=== PATIENT | female | born 1940 | race Caucasian/White ===

== ENCOUNTER 2016-08-24 01:55 | Observation (INO) | payer MEDICARE, OTHER ==
[2016-08-24] MEDS ORDERED: ALBUTEROL SULFATE 2.5 MG/0.5 ML VIAL.NEB IH ONE ×2 (02:14→02:41)
[2016-08-24 02:41] LABS: Hemoglobin 10.5 gm/dL (12.5-16.0); Mean Cell Volume 90.6 fl (78-100); Mean Corpuscular Hemoglobin 30.7 pg (27-31); Mean Corpuscular Hgb Conc 33.9 g/dl (32-36); Mean Platelet Volume 11.5 fl (6.0-9.5); Neutrophil # 14.3 K/mm3 (1.3-6.0); Neutrophil % 84.1 % (42-75.0); Platelet Count 319 K/mm3 (150-450); Red Blood Count 3.42 M/mm3 (4.2-5.4); Red Cell Distribution Width 12.5 % (11.5-14.0)
[2016-08-24 02:44] LABS: Total Cells Counted 100
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
[2016-08-24 03:02] LABS: Troponin I Less than 0.017 ng/ml (0.00-0.10)
[2016-08-24 03:04] LABS: ALT 27 U/L (19-67); AST 23 U/L (0-48); Albumin * 2.9 gm/dl (3.4-5.0); Alkaline Phosphatase * 122 U/L (50-170); Anion Gap 13.4 mmol/L (6.8-13.8); BNP * 3237 pg/mL (5-550); Bilirubin, Total 0.4 mg/dL (0.0-1.1); Blood Urea Nitrogen 11 mg/dL (3-23); Ca. Corrected For Albumin 8.8 mg/dL (8.4-10.2); Calcium * 8.2 mg/dL (7.9-10.9); Carbon Dioxide 23.5 mmol/L (24-32.6); Chloride 89 mmol/L (97-106); Glucose * 138 mg/dL (70-110); Potassium 3.9 mmol/L (3.4-4.6); Sodium 122 mmol/L (132-142)
[2016-08-24 03:06] LABS: Eosinophil 1 % (0-3); Lymphocyte 5 % (20-51); Monocyte 16 % (0-9); Neutrophil 78 % (42-75); Neutrophil # 13.2 K/mm3 (1.3-6.0)
[2016-08-24 03:07] LABS: Hypersegmented Polys 2+; Platelet Estimate Increased (NORMAL); Rouleaux 2+; Toxic Granulation 2+; White Blood Count 16.9 K/mm3 (4.0-10.5)
[2016-08-24] MEDS ORDERED: FUROSEMIDE 10 MG/ML VIAL ONE (04:03)
[2016-08-24] MEDS: FUROSEMIDE 10 MG/ML VIAL IV SCH ×2 (04:10→09:20)
[2016-08-24 04:41] LABS: T4 Free * 1.06 ng/dL (0.76-1.46); TSH * 3.992 uIU/mL (0.358-3.74)
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
[2016-08-24] MEDS ORDERED: AZITHROMYCIN 500 MG in DEXTROSE 5 % IN WATER 250 ML IV SCH ×2 (06:15)
[2016-08-24] MEDS ORDERED: ACETAMINOPHEN PO SCH (06:30)
[2016-08-24] MEDS ORDERED: HYDROCODONE PO SCH (06:30)
[2016-08-24] MEDS ORDERED: LEVOTHYROXINE SODIUM 150 MCG TABLET PO SCH (07:00)
[2016-08-24] MEDS ORDERED: FUROSEMIDE 10 MG/ML VIAL IV ONE (07:09)
[2016-08-24] MEDS ORDERED: METOPROLOL SUCCINATE 100 MG TABLET.SA PO SCH (09:00)
[2016-08-24] MEDS ORDERED: CALCITONIN,SALMON,SYNTHETIC 30 SPRAY BTL NS SCH (09:00)
[2016-08-24] MEDS ORDERED: CALCIUM CARBONATE/VITAMIN D3 1 TAB TABLET PO SCH (09:00)
[2016-08-24] MEDS: HYDROcodone/ACETAMINOPHEN 1 EACH TABLET PO SCH ×3 (11:22→19:47)
[2016-08-24] MEDS ORDERED: ACETAMINOPHEN 325 MG TABLET PO PRN (15:10)
[2016-08-24 17:14] VITALS: BP 137/72
[2016-08-24] MEDS ORDERED: FUROSEMIDE 10 MG/ML VIAL IV STA (17:24)
[2016-08-24] MEDS ORDERED: SPIRONOLACTONE 25 MG TABLET PO STA (17:24)
[2016-08-24] MEDS ORDERED: CHOLECALCIFEROL 1,000 UNIT CAPSULE PO SCH (21:00)
[2016-08-24] MEDS ORDERED: AMITRIPTYLINE HCL 10 MG TABLET PO SCH (21:00)
--- NOTE | 2016-08-28 12:26 | ECHO ---
This report is available in the EMR
== END 2016-08-24 20:22 | disposition short-term general hospital (02) ==
LOC: ER 01:55 → MS 04:21
PROVIDERS: ADMIT Nurse Practitioner Gerontology; ATTEND Internal Medicine
DX: I31.9 Disease of pericardium, unspecified (principal); I51.7 Cardiomegaly; J90 Pleural effusion, not elsewhere classified; I48.91 Unspecified atrial fibrillation; E87.1 Hypo-osmolality and hyponatremia
CPT/HCPCS: 36415; 36600; 71010; 71020; 71035; 80053; 82803; 83605; 83880; 84145; 84439; 84443; 84484; 85025; 87040; 93005; 93306; 94760; 96365; 96367; 96375; 99284; G0378

== ENCOUNTER 2017-07-27 10:05 | Day surgery (SDC) | payer MEDICARE, OTHER ==
[~2017-07-27 10:05] MED LIST: RINGER'S SOLUTION,LACTATED 1,000 ML IV ONE; RINGER'S SOLUTION,LACTATED 1,000 ML IV PRN
[2017-07-27] MEDS ORDERED: RINGER'S SOLUTION,LACTATED 1,000 ML IV ONE (10:15)
--- NOTE | 2017-07-27 12:12 | OR ---
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 Inspection of the external anus was normal and sphincter tone was normal. The flexible fiberoptic video colonoscope was introduced and advanced under direct vision without difficulty to the cecum. The usual landmarks were identified and also through palpation in transillumination. Preparation was excellent and excellent views were obtained. Findings were a normal cecum, ascending colon, hepatic flexure, transverse colon , splenic flexure, descending colon, sigmoid colon, and rectum, with a normal retroflexed view. The mucosal collar, vasculature, and texture were normal throughout. No suspicious masses were seen. The patient tolerated the procedure well without apparent complications and was discharged from the endoscopy suite in stable condition.
[2017-07-27 13:09] VITALS: BP 159/71
== END 2017-07-27 10:06 | disposition home or self-care (01) ==
LOC: AMB 10:05
PROVIDERS: ATTEND Specialist
PROC: 0DJD8ZZ Inspection of Lower Intestinal Tract, Via Natural or Artificial Opening Endoscopic (ICD-10-PCS; principal; 2017-07-27 11:15)
DX: Z12.11 Encounter for screening for malignant neoplasm of colon (principal); I10 Essential (primary) hypertension; E78.5 Hyperlipidemia, unspecified; E03.9 Hypothyroidism, unspecified; I48.91 Unspecified atrial fibrillation; M81.0 Age-related osteoporosis without current pathological fracture; F41.1 Generalized anxiety disorder; Z68.26 Body mass index [BMI] 26.0-26.9, adult